=== PATIENT | female | born 1930 | race Caucasian/White ===

== ENCOUNTER 2016-11-12 03:58 | Observation (INO) | payer MEDICARE, OTHER ==
[~2016-11-12 03:58] MED LIST: ALLERGY25 M3 PO; AMLODIPINE BES2.5 M1 PO; ASPIR-LOW81 M1 PO; ATENOLOL50 M1 PO; CLONIDINE HCL0.1 M2 PO; IBUPROFEN200 M2 PO; LISINOPRIL10 M1 PO; MEMANTINE HCL10 MG PO; PANTOPRAZOLE SO40 M3 PO; PLAVIX75 M1 PO; ROPINIROLE HC0.25 M1 PO; SPIRONOLACTONE25 M2 PO
[2016-11-12 04:35] LABS: BASO % 0.2 % (0-2); EOS % 0.5 % (0-7); EOSINOPHIL ABSOLUTE COUNT 0.1 tho/cmm (0.0-0.7); HCT-HEMATOCRIT 35.7 % (34.0-49.0); HGB-HEMOGLOBIN 12.2 gm/dl (12.0-15.5); IMMATURE GRANULOCYTES ABSOLUTE 0.32 tho/cmm (0-0.03); IMMATURE GRANULOCYTES PERCENT 3.2 % (0-0.3); LYMPH % 16.1 % (20-45); LYMPH ABSOLUTE COUNT 1.6 tho/cmm (0.8-4.5); MCH (MEAN CORPUSCULAR HGB) 31.2 pg (28.0-32.0); MCHC MEAN CORPUSCULAR HGB CONC 34.2 % (32.0-36.0); MCV (MEAN CELL VOLUME) 91.3 fl (82.0-96.0); MEAN PLATELET VOLUME 8.2 cmc (9.4-12.4); MONOCYTE ABSOLUTE COUNT 0.7 tho/cmm (0.0-1.2); NEUTROPHIL ABSOLUTE COUNT 7.4 tho/cmm (1.6-8.0); NEUTROPHIL-AUTOMATED 7.4 tho/cmm (1.6-8.0); PLATELET COUNT 395 tho/cmm (150-450); RED BLOOD COUNT 3.91 mil/cmm (4.00-5.20); RED CELL DISTRIBUTION WIDTH 12.5 % (12.4-16.4); WHITE BLOOD COUNT 10.1 tho/cmm (4.0-10.0)
[2016-11-12 04:49] LABS: ALB/GLOB RATIO 1.1 (0.8-2.0); ALBUMIN 3.8 g/dl (3.5-5.0); ALKALINE PHOSPHATASE 52 U/L (33-138); ALT/SGPT 28 U/L (12-78); ANION GAP 15 mmol/L (0-20); AST/SGOT 25 U/L (10-40); BILIRUBIN,TOTAL 0.7 mg/dl (0-1.5); BLOOD UREA NITROGEN 31 mg/dl (6-24); CALCIUM 9.3 mg/dl (8.5-10.5); CARBON DIOXIDE-VENOUS 26 mmol/L (22-32); CHLORIDE 94 mmol/l (96-110); CREATININE 1.66 mg/dl (0.50-1.10); GLUCOSE 109 mg/dL (70-110); LIPASE 133 U/L (73-393); POTASSIUM 3.9 mmol/L (3.7-5.1); SODIUM 131 mmol/L (135-145); eGFR VALUE FOR BLACK 32 mL/Min
[2016-11-12] MEDS ORDERED: CERTAVITE SR-A1 EACH PO (05:21)
[2016-11-12] MEDS ORDERED: LASIX40 M1 PO (05:22)
[2016-11-12] MEDS ORDERED: VITAMIN D32000 UNI2 PO (05:23)
[2016-11-12 05:26] LABS: URINE BILIRUBIN NEGATIVE (NEG); URINE BLOOD NEGATIVE (NEG); URINE GLUCOSE (UA) NEGATIVE (NEG); URINE KETONE NEGATIVE (NEG); URINE LEUKOCYTE ESTERASE NEGATIVE (NEG); URINE NITRITE NEGATIVE (NEG); URINE PROTEIN NEGATIVE (NEG); URINE SPECIFIC GRAVITY 1.015 (1.003-1.030)
[2016-11-12 05:46] LABS: URINE APPEARANCE CLEAR; URINE COLOR YELLOW
[2016-11-13 05:32] LABS: BASO % 0.2 % (0-2); EOS % 1.2 % (0-7); EOSINOPHIL ABSOLUTE COUNT 0.1 tho/cmm (0.0-0.7); HCT-HEMATOCRIT 31.6 % (34.0-49.0); HGB-HEMOGLOBIN 10.7 gm/dl (12.0-15.5); IMMATURE GRANULOCYTES PERCENT 1.2 % (0-0.3); LYMPH % 20.8 % (20-45); LYMPH ABSOLUTE COUNT 1.7 tho/cmm (0.8-4.5); MCH (MEAN CORPUSCULAR HGB) 31.1 pg (28.0-32.0); MCHC MEAN CORPUSCULAR HGB CONC 33.9 % (32.0-36.0); MCV (MEAN CELL VOLUME) 91.9 fl (82.0-96.0); MEAN PLATELET VOLUME 8.1 cmc (9.4-12.4); MONO % 8.7 % (0-12); MONOCYTE ABSOLUTE COUNT 0.7 tho/cmm (0.0-1.2); NEUTROPHIL ABSOLUTE COUNT 5.5 tho/cmm (1.6-8.0); NEUTROPHIL-AUTOMATED 5.5 tho/cmm (1.6-8.0); NEUTROPHILS % 67.9 % (40-80); PLATELET COUNT 378 tho/cmm (150-450); RED BLOOD COUNT 3.44 mil/cmm (4.00-5.20); RED CELL DISTRIBUTION WIDTH 12.9 % (12.4-16.4); WHITE BLOOD COUNT 8.1 tho/cmm (4.0-10.0)
[2016-11-13 05:40] LABS: ANION GAP 14 mmol/L (0-20); BLOOD UREA NITROGEN 19 mg/dl (6-24); CALCIUM 8.5 mg/dl (8.5-10.5); CARBON DIOXIDE-VENOUS 25 mmol/L (22-32); CHLORIDE 101 mmol/l (96-110); CREATININE 1.04 mg/dl (0.50-1.10); GLUCOSE 96 mg/dL (70-110); SODIUM 136 mmol/L (135-145); eGFR VALUE FOR BLACK 56 mL/Min
[2016-11-13] MEDS ORDERED: MUCINEX600 M1 PO (11:40)
[2016-11-13] MEDS ORDERED: PROAIR HFA8.5 GM INH (11:42)
== END 2016-11-13 12:55 ==
LOC: EDMED 03:58 → EMR2 06:43 → CAR1 13:35
PROVIDERS: Emergency Medicine; Internal Medicine; ADMIT Hospitalist
DX: R11.2 Nausea with vomiting, unspecified (principal); R19.7 Diarrhea, unspecified; J06.9 Acute upper respiratory infection, unspecified; B34.8 Other viral infections of unspecified site; I10 Essential (primary) hypertension; K21.9 Gastro-esophageal reflux disease without esophagitis; F32.9 Major depressive disorder, single episode, unspecified; J44.9 Chronic obstructive pulmonary disease, unspecified; Z79.02 Long term (current) use of antithrombotics/antiplatelets; Z79.1 Long term (current) use of non-steroidal anti-inflammatories (NSAID); Z79.82 Long term (current) use of aspirin; Z79.899 Other long term (current) drug therapy; Z88.1 Allergy status to other antibiotic agents; Z85.3 Personal history of malignant neoplasm of breast; Z90.11 Acquired absence of right breast and nipple; Z98.890 Other specified postprocedural states
CPT/HCPCS: G0378; J2405; J7030; P9612